=== PATIENT | male | born 1970 | race Caucasian/White ===

== ENCOUNTER 2016-07-08 06:23 | Inpatient (IN) | payer OTHER ==
[2016-05-16 11:11] VITALS: BMI 33.0
--- NOTE | 2016-05-16 11:40 | PAT Medication Instructions ---
Service Date May 16, 2016. Current Home Medication List No Active Prescriptions or Reported Meds Medication Instructions For Your Scheduled Surgery No Active Prescriptions or Reported Meds- please contact PAT department if starting any medications prior to surgery. If you have any questions please call us at [phone] (Tita Vann PA-C) or [phone] or [phone]
[2016-05-16 11:50] LABS: BASO % 0.2 %; BASO ABS # 0.01 K/uL (0-0.2); COMPLETE YES; EOS % 3.2 %; HEMATOCRIT 44.4 % (42-52); IG% 0.2 %; LYMPH % 28.8 %; LYMPH ABS # 1.53 K/uL (1.2-3.4); MEAN CELL VOLUME 89.9 fL (80-100); MEAN CORPUSCULAR HGB CONC 33.3 g/dl (32-36); MEAN PLATELET VOLUME 10.4 fL (7.4-10.4); NEUT % 58.6 %; PLATELET COUNT 217 K/uL (130-400); RED BLOOD COUNT 4.94 M/uL (4.7-6.1); WHITE BLOOD COUNT 5.31 K/uL (4.8-10.8)
--- NOTE | 2016-05-16 12:06 | DIAGNOSTIC IMAGING REPORT ---
CHEST 2 VIEWS ROUTINE CLINICAL HISTORY: Preoperative evaluation COMPARISON STUDY: No previous studies for comparison. FINDINGS: Lung volumes are normal. Lungs are clear. There is no pneumothorax or pleural effusion. Cardiac size is normal. Mediastinal contours are normal. IMPRESSION: No acute cardiopulmonary findings. Electronically signed by: Andi Shah M.D. 05/16/2016 12:04 PM
[2016-05-16 12:19] LABS: PROTHROMBIN TIME (PATIENT) 10.5 SECONDS (9.0-12.0)
[2016-05-16 18:26] LABS: BUN/CREATININE RATIO 23.3 (10-20); CREATININE 1.2 mg/dl (0.60-1.40); POTASSIUM 4.6 mmol/L (3.5-5.1)
--- NOTE | 2016-07-04 00:27 | HISTORY & PHYSICAL EXAMINATION ---
DATE OF ADMISSION: 07/08/2016 CHIEF COMPLAINT: Right hip and leg pain. 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 He has got a 3-year history of increasing right hip pain and discomfort. He describes it as worse. 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 He describes groin pain, thigh pain and lateral hip pain. He can reach down to his knee but no further. Denies any numbness. He takes anti-inflammatories with minimal relief. 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 He would like to proceed with hip replacement surgery. PAST MEDICAL HISTORY: Noncontributory. PAST SURGICAL HISTORY: Includes: 1. Eye surgery. 2. Hand surgery. 3. Skin grafting. ALLERGIES: None. CURRENT MEDICATIONS: Include various anti-inflammatories. SOCIAL HISTORY: A 46-year-old male. He is . He does have family around. His son lives with him. Two drinks per week. He denies tobacco use. FAMILY HISTORY: Noncontributory. REVIEW OF SYSTEMS: Negative for diabetes, neurologic problems, vascular problems or bleeding disorders. He denies any chest pain, no shortness of breath. No history of DVT or PE. PHYSICAL EXAMINATION: GENERAL: Reveals a healthy, pleasant 46-year-old male. Looks to be in reasonably good health. HEENT: Benign. NECK: Supple, no lymphadenopathy. LUNGS: Clear to auscultation. HEART: Regular rate and rhythm. ABDOMEN: Soft, nontender, nondistended. EXTREMITIES: Grossly neurovascularly intact except as follows: Examination of the right hip and leg reveals the patient ambulates with a slight bit of a limp. Clinically, his leg lengths look pretty equal. He has got a very stiff hip with internal rotation to neutral, external rotation to 20 degrees. He has got pain with rotation. His pelvis locks with rotation. Negative straight leg raise. X-RAYS: X-rays of the right hip were reviewed, showed advanced right hip DJD. He has got complete loss of his superior joint space. He has got cystic changes of the femoral head and acetabulum. Significant osteophytes on both sides of the joint. 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 It is really limiting his activities and ability to maintain his lifestyle. PLAN: We are going to take him to the operating room and do right total hip replacement. The risks and benefits of this procedure were explained to the patient including but not limited to DVT, PE, , infection, neurological injury, vascular injury, bleeding problem, pain, limited range of motion, stiffness, failure to relieve symptoms, incomplete relief of symptoms, need for further surgery in the future, fracture, leg length inequality, nerve palsy, need for revision surgery, etc. The patient understands, desires to proceed, informed consent was obtained. The patient had preoperative workup. Chest x-ray was normal. EKG was normal. Labs were all normal. He is planning to be discharged to home. He is going to have some family help as he lives by himself. I will see him back 2 weeks postop. ALYX
[2016-07-08] VITALS (14 sets, daily range): BP systolic 110–143; BP diastolic 70–100; PULSE 62–101; TEMP 36.4–36.9; O2SAT 92–97; Ht 180.3 cm; Wt 108.0 kg
[~2016-07-08] VITALS: Ht 180.3 cm; Wt 108.0 kg
[~2016-07-08 06:23] MED LIST: ACETAMINOPHEN 500 MG TAB PO SCH; CEFAZOLIN 2000 MG/60 ML D5W IV SCH; FAMOTIDINE 20 MG TAB PO SCH; GABAPENTIN 300 MG CAP PO SCH; LACTATED RINGER'S 1000ML 1,000 ML IV SCH; LACTATED RINGER'S 1000ML IV SCH; LACTATED RINGER'S 500 ML IV SCH; METOCLOPRAMIDE HCL 10 MG TAB PO SCH; SCOPOLAMINE 1.5 MG TDSY TD SCH; TRANEXAMIC ACID INJ 1,000 MG in SODIUM CHLORIDE 0.9% 100ML 100 ML IV SCH
--- NOTE | 2016-07-08 06:48 | History & Physical Bridge Note ---
H&P Re-Evaluation Bridge Note: I have examined the patient, reviewed the History & Physical and in the interval since the performance of the History & Physical I have noted the following changes of clinical significance: No changes noted
[2016-07-08] MEDS ORDERED: BUPIVACAINE 0.5 % 5 MG/1 ML PF 10ML VIAL ONE ×2 (07:08→09:18)
[2016-07-08] MEDS ORDERED: MIDAZOLAM HCL 1 MG/ML 2ML VIAL ONE ×2 (07:57→09:17)
[2016-07-08] MEDS ORDERED: FENTANYL CITRATE INJ 50 MCG/1 ML 2 ML VIAL ONE (07:57)
[2016-07-08] MEDS ORDERED: MoRPHine SULFATE PF 1 MG/ML 10 ML AMP/VIAL ONE (09:17)
[2016-07-08] MEDS ORDERED: PROPOFOL IV EMULSION 10 MG/ML 20 ML VIAL IV ONE (10:08)
[2016-07-08] MEDS ORDERED: LIDOCAINE HCL 2% 2 ML VIAL (20MG/ML) ONE (10:08)
[2016-07-08] MEDS ORDERED: EpHEDrine SULFATE 50MG/5ML SYR ONE (10:08)
[2016-07-08] MEDS ORDERED: FENTANYL CITRATE INJ 50 MCG/1 ML 2 ML VIAL IV PRN (10:45)
[2016-07-08] MEDS ORDERED: LABETALOL HCL IV 5 MG/ML 20ML IV PRN (10:45)
[2016-07-08] MEDS ORDERED: ONDANSETRON INJ 2 MG/ML 2 ML VIAL IV PRN ×2 (10:45→12:30)
[2016-07-08] MEDS ORDERED: MEPERIDINE HCL 25 MG/ML CARP IV PRN ×2 (10:45→12:30)
[2016-07-08] MEDS ORDERED: ATROPINE SULFATE 0.1 MG/ML 5ML SYR IV PRN (10:45)
[2016-07-08] MEDS ORDERED: HYDROmorphone INJ 1 MG/ML SYR IV PRN (10:45)
[2016-07-08] MEDS ORDERED: EpHEDrine SULFATE INJ 50 MG/ML AMP IV PRN ×2 (10:45→12:30)
[2016-07-08] MEDS ORDERED: BUPIVACAINE/EPINEPHRINE 0.5% MPF 1:200,000 30 ML VIAL INJ ONE (11:04)
[2016-07-08] MEDS ORDERED: BACITRACIN 50000 UNIT VIAL IR ONE (11:04)
--- NOTE | 2016-07-08 11:29 | [facility] Post Operative Brief Note ---
Immediate Operative Summary Operative Date Jul 08, 2016. Pre-Operative Diagnosis Right hip degenerative joint disease Post-Operative Diagnosis Right hip degenerative joint disease Procedure(s) Performed Right total hip arthroplasty Surgeon Dr. Morales Machine Cell Tuber Surgeon(s) Chaka Huffman PA-C Estimated Blood Loss 300ml Findings Right Hip DJD Specimens A. Right femoral head Drains None Anesthesia Spinal Complication(s) None Disposition Recovery Room / PACU
[2016-07-08] MEDS ORDERED: TAMSULOSIN HCL 0.4 MG CAP PO PRN (11:30)
[2016-07-08] MEDS ORDERED: BISACODYL 10 MG SUPP PR PRN (11:30)
[2016-07-08] MEDS ORDERED: MAGNESIUM HYDROXIDE SUSP 30 ML UDC PO PRN (11:30)
[2016-07-08] MEDS ORDERED: SILVER SULFADIAZINE 1% CR 50 GM JAR EXT PRN (11:30)
[2016-07-08] MEDS ORDERED: ALUMINUM/MAGNESIUM/SIMETH (MAALOX MAX) 30 ML UDC PO PRN (11:30)
--- NOTE | 2016-07-08 12:14 | Anesthesiology Progress Note ---
Anesthesia Post Op Note Date & Time Jul 08, 2016 at 12:14 Vital Signs Pain Intensity: 0 Vital Signs Past 12 Hours Date Time Temp Pulse Resp B/P Pulse Ox O2 Delivery O2 Flow Rate FiO2 07/08/16 12:04 64 16 93 07/08/16 12:04 63 16 07/08/16 12:03 120/80 07/08/16 11:59 59 16 129/98 90 07/08/16 11:59 57 16 07/08/16 11:54 62 16 129/66 92 07/08/16 11:54 61 16 07/08/16 11:49 72 14 07/08/16 11:49 87 14 97 07/08/16 11:48 132/86 07/08/16 11:46 60 16 100 07/08/16 11:46 59 16 07/08/16 11:44 109/74 07/08/16 11:41 58 18 99 07/08/16 11:41 60 18 07/08/16 11:38 140/86 07/08/16 11:36 62 17 99 07/08/16 11:36 62 17 07/08/16 11:33 116/80 07/08/16 11:31 36.2 66 20 135/84 95 Mask 10 07/08/16 11:31 58 13 99 07/08/16 11:31 60 13 07/08/16 07:26 138/84 07/08/16 07:12 36.6 77 20 140/100 96 Room Air Notes Mental Status: alert / awake / arousable, participated in evaluation Pt Amnestic to Procedure: Yes Nausea / Vomiting: adequately controlled Pain: adequately controlled Airway Patency, RR, SpO2: stable & adequate BP & HR: stable & adequate Hydration State: stable & adequate Anesthetic Complications: no major complications apparent
[2016-07-08] MEDS ORDERED: LACTATED RINGER'S 1000ML 500 ML IV PRN (12:24)
[2016-07-08] MEDS ORDERED: SODIUM CHLORIDE 0.9% 1000ML 1,000 ML IV PRN (12:24)
[2016-07-08] MEDS ORDERED: NALOXONE HCL INJ 0.08 MG in SYRINGE 1.8 ML IV PRN (12:24)
[2016-07-08] MEDS ORDERED: NALOXONE HCL INJ 1 MG in SODIUM CHLORIDE 0.9% 1000ML 1,000 ML IV PRN (12:24)
--- NOTE | 2016-07-08 12:26 | DIAGNOSTIC IMAGING REPORT ---
RIGHT PELVIS/UNILATERAL HIP 1 VIEW CLINICAL HISTORY: IN PACU - A/P PELVIS and LATERAL HIP INCLUDING ALL OF IMPLANT Right COMPARISON: None. DISCUSSION: Status post total right hip replacement. Good contact between prosthetic and underlying bone. Expected soft tissue postoperative change. IMPRESSION: Anatomic alignment status post total right hip replacement Electronically signed by: Hung Chaves M.D. 07/08/2016 12:24 PM Dictated Date/Time: 07/08/2016 12:24 PM
[2016-07-08] MEDS ORDERED: NALBUPHINE HCL INJ 10 MG/ML AMP IV PRN (12:30)
[2016-07-08] MEDS ORDERED: MoRPHine SULFATE 2 MG/ML CARP IV PRN (12:30)
[2016-07-08] MEDS ORDERED: NALOXONE HCL 0.4 MG/1 ML VIAL/CARP IV PRN (12:30)
[2016-07-08] MEDS ORDERED: KETOROLAC TROMETHAMINE 30 MG/ML VIAL IV. PRN (12:30)
[2016-07-08] MEDS ORDERED: PROMETHAZINE HCL INJ 25 MG in SODIUM CHLORIDE 0.9% 50ML 50 ML IV PRN (12:30)
[2016-07-08] MEDS ORDERED: NO NARCOTICS OR SEDATIVES SCH (12:30)
[2016-07-08] MEDS ORDERED: METOCLOPRAMIDE HCL INJ 20 MG in SODIUM CHLORIDE 0.9% 50ML 50 ML IV PRN (12:30)
[2016-07-08] MEDS ORDERED: MoRPHine SULFATE PF 1 MG/ML 10 ML AMP/VIAL EPI PRN (12:30)
[2016-07-08] MEDS ORDERED: DiphenhydrAMINE HCL 50 MG/ML VIAL IV PRN ×2 (12:30)
--- NOTE | 2016-07-08 12:49 | OPERATIVE REPORT ---
DATE OF OPERATION: 07/08/2016 SURGEON: Dr. Bola Morales. BUTTERMAKER CONTINUOUS CHURN: AMILCAR Vang. PREOPERATIVE DIAGNOSIS: Right hip degenerative joint disease. POSTOPERATIVE DIAGNOSIS: Same. PROCEDURE PERFORMED: Right ceramic on highly cross-linked polyethylene uncemented total hip arthroplasty. COMPLICATIONS: None. ESTIMATED BLOOD LOSS: 300 mL. FLUID REPLACEMENT: 1100 mL crystalloid fluid replacement. ANESTHESIA: Duramorph spinal. DRAINS: None. SPECIMEN: Right femoral head sent for pathology. 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 He has been through extensive conservative treatment. It is really starting to limit his ability to perform his job. X-rays revealed advanced right hip DJD. The patient elected to proceed with operative treatment. OPERATIVE FINDINGS: Operative findings revealed advanced right hip DJD. He had grade 4 [id number] disease of the femoral head and acetabulum. Flattening of his femoral head. Fairly small osteophytes. Moderate size joint effusion. OPERATIVE IMPLANTS: Operative implants consisted of: 1. Biomet G7 size 58 mm acetabular shell. 2. An apex hole eliminator. 3. Two 6.5 cancellous acetabular screws, 1 at 35 mm in length and 1 at 25 mm in length. 4. A vitamin E enriched highly cross-linked polyethylene liner with a 58 mm outer diameter, 36 mm inner down with the nash placed very inferior and posterior. 5. A DePuy size 13.5 small stature AML femoral stem. 6. A +5/36 mm ceramic articular ball. OPERATIVE PROCEDURE: The patient was taken to the operating room, identified and placed on the operating table in a supine position. All contact areas were appropriately padded. IV antibiotics were provided by anesthesia team. A spinal anesthetic had been implemented in the holding area. Harmon catheter was placed in a sterile fashion. The patient was then placed in the left lateral decubitus position. An axillary roll was placed. Stlberg hip positioner was used for positioning. The right hip and leg were then prepped and draped in the usual sterile fashion. A posterolateral approach to the right hip was then performed through a curvilinear incision centered over the greater trochanter. Sharp dissection was carried out through the subcutaneous tissue down to the level of the IT band and gluteal fascia. The IT band and gluteal fascia were then incised longitudinally in line with the skin incision. The underlying greater trochanteric bursa was excised. The piriformis and external rotators and the posterior capsule were then incised as a single layer. Great care was taken throughout the procedure to protect the sciatic nerve at all times. Hip was internally rotated and dislocated. Femoral neck osteotomy cut was made with the final cut a centimeter above the lesser trochanter. Femoral head was removed and sent for pathology. The femur was retracted anteriorly. Attention was then drawn to the acetabulum. The acetabular labrum was excised. The pulvinar fat was excised. Sequential reaming of the acetabulum was then performed beginning with a size 51 and progressing up to a 57. A 58 mm Biomet G7 acetabular shell was then placed in about 40 degrees of lateral opening and 20 degrees of anteversion. It was fixed with two 6.5 cancellous acetabular screws. A trial liner was placed. Attention was then drawn to the femur. The proximal femur was entered with a cookie cutter followed by a canal finder and lateralizing reamer. Sequential reaming of the femur was then performed beginning with a size 9 and progressing up to a 13. We got pretty good chatter even just at about 12, but we wanted to have the option to put a high offset stem and so we did ream up to a 13. We then broached beginning with a size 10.5 small and progressing up to 13.5 small. We got excellent metaphyseal fit. I felt there was still cancellous bone, but it was extremely hard and supported the implant and we elected to just stop there. Calcar reamer was used to smoothen off the calcar. The hip was then trialed and the +5/36 mm articular ball provided full stability and full extension and external rotation and flexion to 90 degrees, internal rotation to [address] a nash inferior and posterior to maximize stability in flexion. Attention was then drawn toward placement of permanent implants. Of note, we did assess leg lengths and they seemed clinically equal. All trial implants were removed. An apex hole eliminator was placed. I then placed a highly cross-linked polyethylene liner with a nash placed inferior and posterior. I could not get this to seat down so we took the liner out. The apex hole eliminator was crossed threaded then slightly prominent and prevented the liner from going down. We replaced this with a new apex hole eliminator. A new piece of polyethylene was taken out and placed. At this point, it seated appropriately. The nash was placed inferior and posterior. The 13.5 small stem was then placed. I did ream part way down the canal with the 13.5 reamer, as it was extremely tight. Even doing this, it was extremely tight. We got good fit. A +5/36 mm ceramic articular ball was placed. Hip was located. It was once again found to be stable. Attention was then drawn toward closing. The wound was irrigated with copious amounts of pulsatile lavage solution. I injected locally with 60 mL of 0.5% Marcaine with epinephrine. The posterior capsule and external rotators were repaired with a single layer with #2 Tycron suture through drill holes in the posterior trochanter. The IT band and gluteal fascia were then closed with #1 PDS suture in running fashion. The subcutaneous tissues were then closed with 2 layers, with the deep layer with #1 Vicryl suture and subcutaneous tissues with 2-0 Dexon suture in a buried interrupted fashion. The skin was closed with skin almas. The leg was then cleaned and dried and a sterile dressing composed of Xeroform, 4 x 4, sterile ABD pad and foam tape was applied. The patient then transferred to the recovery room in stable condition. The patient tolerated the procedure well with no complications. All needle and sponge counts were correct at the end of the operation. I attest to the content of the Intraoperative Record and any orders documented therein. Any exceptions are noted below. ALYX
[2016-07-08] MEDS ORDERED: KETOROLAC TROMETHAMINE 30 MG/ML VIAL IV. SCH (14:00)
[2016-07-08] MEDS: D5W AND 1/2NSS + 20MEQ KCL 1,000 ML IV SCH ×2 (14:18→20:36)
[2016-07-08] MEDS: ACETAMINOPHEN 500 MG TAB PO SCH ×2 (14:18→21:25)
--- NOTE | 2016-07-08 14:24 | PROGRESS NOTE ---
DATE: 07/08/2016 SUBJECTIVE: A 46-year-old gentleman postop from a right total hip replacement. He is doing well. Not having any pain. No chest pain or shortness of breath. Not feeling dizzy or lightheaded. No nausea. OBJECTIVE: VITAL SIGNS: Temperature is 36.4. Vital signs stable. PHYSICAL EXAMINATION: GENERAL: Reveals a healthy, pleasant, middle-aged male. He is sitting up in bed, looks comfortable. LUNGS: Clear to auscultation. HEART: Regular rate and rhythm. ABDOMEN: Soft, nontender, nondistended. EXTREMITIES: Grossly neurovascularly intact except as follows: Examination of the right lower extremity reveals the leg to be well aligned. The leg lengths appear equal. His dressing is clean, dry and intact. Thigh is soft and supple. He can dorsiflex and plantarflex his foot appropriately. He is neurologically intact. X-RAYS: X-rays of the right hip from recovery room were reviewed. It shows a right uncemented total hip arthroplasty. Components looked to be in good position. No signs of problems. 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 His pain is controlled. Hip is located. He is neurologically intact. PLAN: 1. DVT prophylaxis including thigh-high TEDs, SCDs, and aspirin twice a day. 2. PT/OT. Weightbearing as tolerated. Right total hip protocol. 3. Pain control, doing well with current pain regimen. 4. IV antibiotics x24 hours. 5. Disposition: He is going to be discharged to home. He will likely need some home health. His parents are going to assist in his care as well.
[2016-07-08] MEDS: CHECK SCOPOLAMINE PATCH PLACEMENT SCH (15:06)
[2016-07-08] MEDS: CEFAZOLIN IV 2,000 MG in DEXTROSE 5% 50ML 50 ML IV SCH (17:46)
[2016-07-08] MEDS: FERROUS GLUCONATE 324 MG TAB PO SCH (17:46)
[2016-07-08] MEDS ORDERED: TRANEXAMIC ACID INJ 1,000 MG in SODIUM CHLORIDE 0.9% 100ML 100 ML IV SCH (18:00)
[2016-07-08] MEDS: DOCUSATE SODIUM 100 MG CAP PO SCH (20:36)
[2016-07-08] MEDS: ASPIRIN 325 MG ECTAB PO SCH (20:36)
[2016-07-09] VITALS (14 sets, daily range): BP systolic 112–158; BP diastolic 72–81; PULSE 76–100; TEMP 36.3–37.5; O2SAT 92–99
[2016-07-09] MEDS: CHECK SCOPOLAMINE PATCH PLACEMENT SCH ×3 (00:10→16:42)
[2016-07-09] MEDS: CEFAZOLIN IV 2,000 MG in DEXTROSE 5% 50ML 50 ML IV SCH (02:41)
[2016-07-09] MEDS: D5W AND 1/2NSS + 20MEQ KCL 1,000 ML IV SCH ×2 (02:41→09:53)
[2016-07-09] MEDS: ACETAMINOPHEN 500 MG TAB PO SCH ×3 (06:22→21:29)
[2016-07-09] MEDS ORDERED: DiphenhydrAMINE HCL 50 MG/ML VIAL IV PRN (06:45)
[2016-07-09] MEDS ORDERED: METOCLOPRAMIDE HCL INJ 5 MG/ML 2 ML VIAL IV PRN (06:45)
[2016-07-09] MEDS ORDERED: ZOLPIDEM TARTRATE 5 MG TAB PO PRN (06:45)
[2016-07-09] MEDS ORDERED: ONDANSETRON INJ 2 MG/ML 2 ML VIAL IV PRN (06:45)
[2016-07-09] MEDS ORDERED: DC INTRASPINAL MORPHINE SCH (06:45)
[2016-07-09 06:52] LABS: BASO % 0.1 %; BASO ABS # 0.01 K/uL (0-0.2); COMPLETE YES; EOS % 1.2 %; HEMATOCRIT 33.4 % (42-52); IG% 0.1 %; LYMPH % 15.8 %; LYMPH ABS # 1.09 K/uL (1.2-3.4); MEAN CELL VOLUME 89.5 fL (80-100); MEAN CORPUSCULAR HGB CONC 33.5 g/dl (32-36); MEAN PLATELET VOLUME 9.8 fL (7.4-10.4); MONO % 9.9 %; NEUT % 72.9 %; PLATELET COUNT 158 K/uL (130-400); RED BLOOD COUNT 3.73 M/uL (4.7-6.1)
[2016-07-09 07:28] LABS: BUN/CREATININE RATIO 21.4 (10-20); CALCIUM 7.6 mg/dl (8.5-10.1); CREATININE 1.4 mg/dl (0.60-1.40); POTASSIUM 4.2 mmol/L (3.5-5.1)
[2016-07-09] MEDS: KETOROLAC TROMETHAMINE 30 MG/ML VIAL IV. SCH ×3 (07:34→19:48)
[2016-07-09] MEDS: ASPIRIN 325 MG ECTAB PO SCH ×2 (09:06→21:27)
[2016-07-09] MEDS: TAPENTADOL ER 50 MG TABCR PO SCH ×2 (09:06→21:27)
[2016-07-09] MEDS: DOCUSATE SODIUM 100 MG CAP PO SCH ×2 (09:06→21:28)
[2016-07-09] MEDS: PANTOprazole SOD 40 MG TAB PO SCH (09:07)
[2016-07-09] MEDS: FERROUS GLUCONATE 324 MG TAB PO SCH ×3 (09:07→18:23)
[2016-07-09] MEDS: MULTIVITAMIN TAB PO SCH (09:07)
[2016-07-09] MEDS: OXYCODONE HCL IR 5 MG TAB (IMMEDIATE RELEASE) PO PRN ×3 (11:16→19:42)
[2016-07-09] MEDS ORDERED: ASPEC325 PO (12:09)
[2016-07-09] MEDS ORDERED: OXYC-57 PO (12:09)
--- NOTE | 2016-07-09 12:11 | Discharge Instructions ---
Discharge Instructions Admission Reason for Admission: Right Hip Degenerative Joint Disease Discharge Discharge Diagnosis / Problem: Right Hip Replacement Discharge Goals Goal(s): Decrease discomfort, Improve function, Increase independence, Improve disease control, Therapeutic intervention Activity Recommendations Activity Limitations: per Instructions/Follow-up section (Total Hip PRecautions ) Weightbearing Status: Right weightbearing . Instructions / Follow-Up Instructions / Follow-Up ACTIVITY RECOMMENDATIONS: Physical Therapy: * Aggressive physical therapy is not usually needed. You will learn to take care of yourself safely and walk. * Follow the "Hip Precautions Instructions." * In some cases, the social services technician at the hospital will arrange to have a therapist come to your house for the first couple of weeks to help you learn these skills. * You need to practice on your own or with the help of a family member as needed. * When you learn these skills, most of the therapy can be done on your own. Home Exercise: * You were shown a series of exercises in the hospital. Do these exercises three to four times each day including the exercises you were shown in physical therapy. Walking: * Get up and walk several times each day. For the first four weeks, try not to stand or walk for more than one hour at a time. If you do stand or walk for more than one hour, you will not hurt anything, but your leg will likely swell. * As you feel comfortable, you may change from the walker or crutches to a cane and then to independent walking. MEDICATIONS: New Medicine: * You will likely be taking one or more of these medicines: 1. Percocet - Take, as directed, when you need it, every four to six hours to control your pain. 2. Aspirin - Thins your blood to lessen the chance of forming a blood clot. * The most common side effects of pain medicine and iron are nausea and constipation. If nausea or constipation is too much of a problem or if you have any questions about your new medicines or doses, call [facility] at [phone]. We will try to help you manage these issues. VERY IMPORTANT TO READ AND REVIEW" Pain: * The immediate post-operative period after hip replacement surgery is often quite painful. * You are given a prescription for pain medicine. You should take it, as directed, when you need it, especially before physical therapy and before going to bed. Pain that interferes with sleep is very common and can last several months. * You will likely need pain medicine for the first two to four weeks. It will not stop all of the pain. The pain will lessen and as you feel better, you may change to milder pain medicine such as Tylenol. * The most common side effects of pain medicine are nausea and constipation, so don't take more than you need. SPECIAL CARE INSTRUCTIONS: TEDs/Elastic Stockings: * The white elastic stockings help limit swelling and prevent blood clots from forming in your legs. The more you wear them, the more they work. * Wear them for six weeks. Prevention of Infection: * Take antibiotics one hour before any dental cleaning, dental work, urological procedure, gastrointestinal procedure or any invasive surgery in order to prevent your new joint from getting infected. * You may get the antibiotics from the doctor performing the procedure or you may call our office at before and we will call in a prescription to the pharmacy of your choice. Things to Watch For: * Drainage from the incision site that occurs more than one week after your surgery. * Severely increased leg pain or swelling. * Increased redness at the incision site. * Fever above 102 degrees Fahrenheit. * Unusual chest pain or shortness of breath. * Unusual pain or burning with urination. Call [facility] at with any of the above problems or if you have any questions about your medicines or recovery. FOLLOW UP VISIT: Make an appointment to see your doctor for approximately two weeks after surgery for a progress check and staple removal by calling the office at . Current Hospital Diet Patient's current hospital diet: Regular Diet Discharge Diet Recommended Diet: Regular Diet Procedures Procedures Performed: Right total hip arthroplasty Pending Studies Studies pending at discharge: no Medical Emergencies . Who to Call and When: Medical Emergencies: If at any time you feel your situation is an emergency, please call [phone] immediately. . Non-Emergent Contact Non-Emergency issues call your: Surgeon . "Provider Documentation" section prepared by Bola Morales. VTE Core Measure Inpt VTE Proph given/why not?: Other Anticoagulation, T.E.D. Stockings, SCD's
--- NOTE | 2016-07-09 12:26 | PROGRESS NOTE ---
DATE: 07/09/2016 SUBJECTIVE: A 46-year-old gentleman postop day 1 from right hip replacement. He is doing pretty well. Some pain, but manageable. No chest pain or shortness of breath. Not feeling dizzy or lightheaded. OBJECTIVE: VITAL SIGNS: Temperature 36.6. Vital signs stable. PHYSICAL EXAMINATION: GENERAL: Physical examination reveals a healthy, pleasant, middle-aged male. He is sitting up in his bedside chair and looks comfortable. LUNGS: Clear to auscultation. HEART: Has a regular rate and rhythm. ABDOMEN: Soft, nontender, nondistended. EXTREMITIES: Grossly neurovascularly intact except as follows: Examination of the right lower extremity reveals the dressing to be clean, dry and intact. His leg is well aligned. Hip is located. He is neurologically intact. Thigh is soft and supple. LABORATORIES: Hemoglobin 11.2, hematocrit 33.4. Electrolytes are stable. ASSESSMENT: A 46-year-old gentleman postoperative day 1 from a right total hip replacement, doing pretty well. Pain is controlled. The hip is located. He is neurologically intact. PLAN: 1. DVT prophylaxis including thigh-high TEDs, SCDs, and aspirin twice a day. 2. PT/OT. Weight bear as tolerated. Right total hip protocol. 3. Pain control, doing pretty well with current pain regimen. 4. Disposition: He is planning to be discharged to home. His family is going to help and assist in his care once he is medically stable.
--- NOTE | 2016-07-09 13:50 | Anesthesiology Progress Note ---
Anesthesia Post Op Note Date & Time Jul 09, 2016 at 13:49 Vital Signs Pain Intensity: 7.0 Vital Signs Past 12 Hours Date Time Temp Pulse Resp B/P Pulse Ox O2 Delivery O2 Flow Rate FiO2 07/09/16 12:22 36.3 84 19 158/80 99 Room Air 07/09/16 09:55 92 Room Air 07/09/16 08:04 36.6 76 18 112/72 92 Room Air 07/09/16 07:22 Room Air 07/09/16 06:43 16 94 07/09/16 05:50 16 95 07/09/16 04:50 17 95 07/09/16 03:42 16 95 07/09/16 03:40 37.4 82 16 112/74 96 Nasal Cannula 2.0 07/09/16 02:47 18 93 Notes Mental Status: alert / awake / arousable, participated in evaluation Pt Amnestic to Procedure: Yes Nausea / Vomiting: adequately controlled Pain: adequately controlled Airway Patency, RR, SpO2: stable & adequate BP & HR: stable & adequate Hydration State: stable & adequate Neuraxial Anesthesia: sensory block resolved Anesthetic Complications: no major complications apparent
[2016-07-09] MEDS: MoRPHine SULFATE 2 MG/ML CARP IV PRN ×2 (14:33→19:04)
[2016-07-10] MEDS: KETOROLAC TROMETHAMINE 30 MG/ML VIAL IV. SCH ×2 (01:38→08:07)
[2016-07-10] MEDS: ACETAMINOPHEN 500 MG TAB PO SCH (05:49)
[2016-07-10 07:27] VITALS: BP 128/85; PULSE 89; TEMP 36.5; O2SAT 95
--- NOTE | 2016-07-10 07:35 | PROGRESS NOTE ---
DATE: 07/10/2016 SUBJECTIVE: A 46-year-old gentleman postop day 2 from right total hip replacement. He is doing pretty well. Some soreness in his hip, but very manageable. Denies any chest pain or shortness of breath. Not feeling dizzy or lightheaded. OBJECTIVE: VITAL SIGNS: Temperature 36.9. Vital signs stable. PHYSICAL EXAMINATION: GENERAL: Physical examination reveals a healthy, pleasant, middle-aged male. He is lying in bed, looks pretty comfortable. LUNGS: Clear to auscultation. HEART: Regular rate and rhythm. ABDOMEN: Soft, nontender, nondistended. EXTREMITIES: Grossly neurovascularly intact except as follows. Examination of the right lower extremity reveals the dressing to be clean, dry and intact. His hip is located. Leg lengths are equal. He is neurologically intact. Not much swelling. ASSESSMENT: A 46-year-old gentleman postop day 2 from right total hip replacement, doing pretty well. Pain is controlled. PLAN: 1. DVT prophylaxis including thigh-high TEDs, SCDs, and aspirin twice a day. 2. PT/OT. Weightbearing as tolerated. Right total hip protocol. 3. Pain control, doing pretty well with current pain regimen. 4. Disposition: He is planning to be discharged to home with some home health and his family is going to assist in his care.
[2016-07-10] MEDS: CHECK SCOPOLAMINE PATCH PLACEMENT SCH ×2 (08:06)
[2016-07-10] MEDS: OXYCODONE HCL IR 5 MG TAB (IMMEDIATE RELEASE) PO PRN ×2 (08:14→12:58)
[2016-07-10] MEDS: FERROUS GLUCONATE 324 MG TAB PO SCH ×2 (08:52→12:56)
[2016-07-10] MEDS: MULTIVITAMIN TAB PO SCH (08:52)
[2016-07-10] MEDS: DOCUSATE SODIUM 100 MG CAP PO SCH (08:52)
[2016-07-10] MEDS: ASPIRIN 325 MG ECTAB PO SCH (08:52)
[2016-07-10] MEDS: PANTOprazole SOD 40 MG TAB PO SCH (08:53)
[2016-07-10] MEDS: TAPENTADOL ER 50 MG TABCR PO SCH (08:55)
[2016-07-10 09:44] VITALS: PULSE 105; O2SAT 96
[2016-07-10 09:55] VITALS: BP 128/85; PULSE 89; TEMP 36.5; O2SAT 95
--- NOTE | 2016-07-15 14:27 | DISCHARGE SUMMARY ---
ADMITTING PHYSICIAN AND SURGEON: Dr. Morales. ADMITTING DIAGNOSIS: Right hip degenerative joint disease. SURGERY PERFORMED: Right total hip arthroplasty. SECONDARY DIAGNOSES: Noncontributory. CONSULTS: None obtained. HISTORY AND PHYSICAL EXAMINATION: Well documented in the patient's chart. HOSPITAL COURSE: The patient was admitted on 07/08/2016 underwent total hip arthroplasty, tolerated the procedure well. There were no complications. He was transferred to the PACU postoperatively and later to the orthopedic floor for further care. He was given Ancef for antibiotic prophylaxis, VINCE stockings, SCDs and aspirin for DVT prophylaxis. Hemoglobin, hematocrit and vital signs were monitored during his hospital stay and remained stable. He developed some mild postoperative anemia, did not require any blood transfusions. There were no complications. By postoperative day 2, he was tolerating a general diet, pain was controlled with oral pain medicine. He was participating in physical therapy and had no signs or symptoms of deep vein thrombosis. On postop day 2, he was discharged home in good condition, set up with home health services, given printed discharge instructions including prescriptions for aspirin 325 mg b.i.d. and Percocet. Continue physical therapy, weightbearing as tolerated, VINCE stockings, total hip precautions. He will follow up in 10-12 days or sooner if there are any problems or concerns.
== END 2016-07-10 13:38 | disposition home health service (06) | DRG 470 ==
LOC: ENRESERVDT → ENRESERVTM → C.ACU 06:23 → C.3E 06:30
PROVIDERS: ADMIT Orthopaedic Surgery Sports Medicine; ATTEND Orthopaedic Surgery Sports Medicine
PROC: 0SR904A Replacement of Right Hip Joint with Ceramic on Polyethylene Synthetic Substitute, Uncemented, Open Approach (ICD-10-PCS; principal; 2016-07-08 08:55)
DX: M16.11 Unilateral primary osteoarthritis, right hip (principal); M25.451 Effusion, right hip; E66.9 Obesity, unspecified; Z68.33 Body mass index [BMI] 33.0-33.9, adult